=== PATIENT | male | born 2000 | race Caucasian/White ===

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

== ENCOUNTER 2024-01-11 23:25 | Emergency (ER) | payer SELFPAY ==
[~2024-01-11] VITALS: Ht 175.3 cm; Wt 61.4 kg
[2024-01-11 23:32] VITALS: TEMP 98.5
[2024-01-11] MEDS ORDERED: Mag/Al Hydrox/Simeth Susp 30 ML CUP PO ONE (23:45)
[2024-01-11] MEDS ORDERED: NS 1,000 ML IV ONE (23:45)
[2024-01-12 00:03] LABS: BASO % 0.3 % (0.0-2.0); EOS # 0.1 K/mm3 (0.0-0.7); EOS % 1.1 % (0.0-4.0); GRAN # 8.2 K/mm3 (1.4-6.5); HEMATOCRIT 48.3 % (42.0-52.0); HEMOGLOBIN 17.3 g/dl (13.5-18.0); LYMPH # 2.8 K/mm3 (1.2-3.4); LYMPH % 22.6 % (20.0-51.0); MEAN CELL VOLUME 87 fl (80.0-100.0); MEAN CORPUSCULAR HEMOGLOBIN 31 pg (27-31); MEAN CORPUSCULAR HGB CONC 36 g/dl (33.0-37.0); MEAN PLATELET VOLUME 9.8 fl (7.4-10.4); MONO # 1.1 K/mm3 (0.1-0.6); MONO % 8.8 % (1.7-9.3); PLATELET COUNT 301 K/mm3 (130-400); RED BLOOD COUNT 5.58 M/mm3 (4.20-5.60); REDCELL DISTRIBUTION WIDTH-CV 11.5 % (11.5-14.5)
[2024-01-12 00:21] LABS: ALBUMIN 4.9 g/dL (3.5-5.0); BILIRUBIN,TOTAL 1.8 mg/dL (0.2-1.2); CALCIUM 10.3 mg/dL (8.4-10.2); CREATININE, serum 0.82 mg/dL (0.72-1.25); POTASSIUM 3.2 mEq/L (3.5-4.5)
[2024-01-12 00:46] VITALS: BP 144/88; PULSE 93
== END 2024-01-12 00:55 | disposition home or self-care (01) ==
LOC: COL.ER 23:25
PROVIDERS: Physician Assistant
DX: K20.90 Esophagitis, unspecified without bleeding (principal)
CPT/HCPCS: J7030